=== PATIENT | female | born 1985 | race Caucasian/White ===

== ENCOUNTER 2017-09-26 12:45 | Emergency (ER) | payer OTHER ==
[~2017-09-26] VITALS: Ht 157.5 cm; Wt 82.3 kg
[~2017-09-26 12:45] MED LIST: BCPILLS PO
[2017-09-26 12:50] VITALS: TEMP 36.9; Ht 157.5 cm; Wt 82.3 kg
[2017-09-26] MEDS ORDERED: POTA-639 PO (13:08)
[2017-09-26] MEDS ORDERED: HYDR25TA4 PO (13:08)
--- NOTE | 2017-09-26 14:08 | EMERGENCY ROOM VISIT NOTE ---
History First contact with patient: 13:14 Chief Complaint: FALL Stated Complaint: FALL, RIGHT ARM PAIN AND SWELLING History of Present Illness The patient is a 32 year old female who presents to the Emergency Room with complaints of right arm pain after she had a mechanical fall earlier today. The patient slipped on wooden steps when it was raining. She fell landing on her right lower back. She thinks that she tried to catch herself and hit her arm on the way down. The pain in her arm is from the mid humerus down to the wrist. She has pain with any movement of the wrist or elbow. She denies any numbness or tingling into her hand. She is right-hand dominant. She has not taken anything for pain. She denies any other significant injuries. Review of Systems 6 system review negative. Please see pertinent positives in the history of present illness section. Past Medical/Surgical History Hypertension Social History Smoking Status: Never Smoker Current/Historical Medications Scheduled Hydrochlorothiazide (Hctz), 25 MG PO QD Potassium Ext Rel (Klor-Con), 20 MEQ PO DAILY Physical Exam Vital Signs Date Time Temp Pulse Resp B/P (MAP) Pulse Ox O2 Delivery O2 Flow Rate FiO2 09/26/17 12:50 36.9 110 18 162/107 98 Room Air Physical Exam VITALS: Vitals are noted on the nurse's note and reviewed by myself. Vital signs stable. GENERAL: 32-year-old female, in no acute distress, nondiaphoretic, well- developed well-nourished. SKIN: Minor skin abrasion noted over the right lower back. HEAD: Normocephalic atraumatic. NECK: Supple without nuchal rigidity. No JVD. HEART: Regular rate and rhythm without murmurs gallops or rubs. LUNGS: Clear to auscultation bilaterally without wheezes, rales or rhonchi. No accessory muscle use. Minor abrasion noted over the right upper back. No significant tenderness to palpation over the thorax. MUSCULOSKELETAL: RUE: Tenderness to palpation from the mid right humerus distally over the wrist. There is mild diffuse nonpitting edema noted in the area also. Slight difficulty with flexion and extension of the elbow. No tenderness over the right clavicle or anterior shoulder. Flexion and extension of the shoulder intact. Pain with flexion and extension of the right wrist. Radial pulse +2. There is some snuffbox tenderness noted. The patient is able to make an okay sign. Capillary refill in the fingers is less than 2 seconds. NEURO: Patient was alert and oriented to person place and time. Normal sensation to touch. No focal neurological deficits. Medical Decision & Procedures ER Provider Diagnostic Interpretation: Humerus, elbow, forearm and wrist x-rays IMPRESSION: Ill-defined linear lucency about the scaphoid waist seen only on the PA view of the wrist with the dedicated navicular view appearing normal is equivocal for acute nondisplaced fracture. Correlation with point tenderness and follow-up radiographs recommended. The above report was generated using voice recognition software. It may contain grammatical, syntax or spelling errors. Electronically signed by: Shawn Melendrez M.D. 09/26/2017 2:36 PM Dictated Date/Time: 09/26/2017 2:33 PM IMPRESSION: No fractures identified. No destructive lesions are visualized. Electronically signed by: Umer Pratt M.D. 09/26/2017 2:33 PM Dictated Date/Time: 09/26/2017 2:32 PM The status of this report is Signed. Draft = Not yet reviewed or approved by Radiologist. Signed = Reviewed and approved by Radiologist. IMPRESSION: No acute fracture or joint effusion of the right elbow. Electronically signed by: Ari Tate M.D. 09/26/2017 2:32 PM Dictated Date/Time: 09/26/2017 2:30 PM The status of this report is Signed. Draft = Not yet reviewed or approved by Radiologist. Signed = Reviewed and approved by Radiologist. IMPRESSION: No acute fracture of the right humerus. Electronically signed by: Ari Tate M.D. 09/26/2017 2:39 PM Dictated Date/Time: 09/26/2017 2:32 PM The status of this report is Signed. Draft = Not yet reviewed or approved by Radiologist. Signed = Reviewed and approved by Radiologist. ED Course The patient was seen and examined She declined pain medication Imaging was performed and reviewed The patient was reassessed and resting comfortably. We discussed the results of her imaging. She voiced understanding, was comfortable being discharged home. The patient was put in an Ortho-Glass thumb spica. She was also given a sling. Neurovascular status was rechecked and intact. Discharge instructions were reviewed, and she was discharged in good condition Medical Decision Differential diagnosis: Contusion, fracture, sprain, compartment syndrome among others were entertained This patient is a 32-year-old female that presents to the emergency department with diffuse pain in the right upper extremity after a fall. Imaging showed a questionable navicular fracture. She does have tenderness in the area. The patient will be put in an Ortho-Glass splint and need orthopedic follow-up. She was in agreement. She will return to the ED with any new or concerning symptoms. This chart was completed in part utilizing [employer] Speech Voice Recognition software. Attempts were made to minimize the grammatical errors, random word insertions, pronoun errors and incomplete sentences. Any formal questions or concerns about the content, text or information contained within the body of this dictation should be directly addressed to the provider for clarification. Medication Reconcilliation Current Medication List: was personally reviewed by me Blood Pressure Screening Patient's blood pressure: Elevated blood pressure Blood pressure disposition: Elevated BP felt to be situational Impression Primary Impression: Fall Departure Information Dispostion Home / Self-Care Condition GOOD Referrals Dar Justin M.D. (PCP) Abhi Rodriguez D.O. Patient Instructions [facility] Additional Instructions You had been seen in the emergency department for right arm pain resulting from a fall. There is a questionable fracture in your wrist. Please keep the splint in place. Do not get it wet. Rest the arm in a sling. Please call the orthopedic doctor first thing tomorrow morning for a follow-up appointment Please apply ice for 20 minute intervals over the next 48 hours. Take ibuprofen 600 mg every 6 hours as needed for pain. Do not exceed 2400 mg in a 24-hour period Please do not hesitate to return to the emergency department with any new, worsening or concerning symptoms; especially, severe pain, numbness or inability to move the fingers It was a pleasure participating in your care today
--- NOTE | 2017-09-26 14:33 | DIAGNOSTIC IMAGING REPORT ---
R ELBOW MIN 3 VIEWS ROUTINE CLINICAL HISTORY: Right elbow pain following fall. COMPARISON: None FINDINGS: Alignment of the right elbow is anatomic. There is no acute fracture or joint effusion. No osseous lesion is identified. IMPRESSION: No acute fracture or joint effusion of the right elbow. Electronically signed by: Ari Tate M.D. 09/26/2017 2:32 PM Dictated Date/Time: 09/26/2017 2:30 PM
--- NOTE | 2017-09-26 14:34 | DIAGNOSTIC IMAGING REPORT ---
R FOREARM 2 VIEWS ROUTINE CLINICAL HISTORY: Right forearm pain COMPARISON: None. DISCUSSION: No fractures are visualized. There are no erosive or destructive changes. IMPRESSION: No fractures identified. No destructive lesions are visualized. Electronically signed by: Umer Pratt M.D. 09/26/2017 2:33 PM Dictated Date/Time: 09/26/2017 2:32 PM
--- NOTE | 2017-09-26 14:38 | DIAGNOSTIC IMAGING REPORT ---
R WRIST W/NAVICULAR MIN 3 VIEWS HISTORY: 32 years-old Female snuff box tenderness acute pain and tenderness of the right wrist status post fall COMPARISON: None available TECHNIQUE: 5 views of the right wrist FINDINGS: Ill-defined linear lucency about the scaphoid waist is seen only on the PA view. The dedicated. Navicular view appears normal. The remaining bony structures appear unremarkable. No acute displaced fracture or dislocation. No significant soft tissue swelling or degenerative changes. IMPRESSION: Ill-defined linear lucency about the scaphoid waist seen only on the PA view of the wrist with the dedicated navicular view appearing normal is equivocal for acute nondisplaced fracture. Correlation with point tenderness and follow-up radiographs recommended. The above report was generated using voice recognition software. It may contain grammatical, syntax or spelling errors. Electronically signed by: Shawn Melendrez M.D. 09/26/2017 2:36 PM Dictated Date/Time: 09/26/2017 2:33 PM
--- NOTE | 2017-09-26 14:40 | DIAGNOSTIC IMAGING REPORT ---
R HUMERUS MIN 2 VIEWS ROUTINE CLINICAL HISTORY: Right humerus pain following fall. COMPARISON: None FINDINGS: No acute fracture of the right humerus is identified. Alignment of the right shoulder and elbow appears anatomic. IMPRESSION: No acute fracture of the right humerus. Electronically signed by: Ari Tate M.D. 09/26/2017 2:39 PM Dictated Date/Time: 09/26/2017 2:32 PM
[2017-09-26 15:32] VITALS: BP 136/95; PULSE 101; O2SAT 96
== END 2017-09-26 15:54 | disposition home or self-care (01) ==
LOC: C.EDB 12:47 → C.EDD 15:54
DX: M79.601 Pain in right arm (principal); S30.810A Abrasion of lower back and pelvis, initial encounter; W10.9XXA Fall (on) (from) unspecified stairs and steps, initial encounter; I10 Essential (primary) hypertension; Z79.899 Other long term (current) drug therapy

== ENCOUNTER 2021-03-23 13:56 | Inpatient (IN) ==
[2021-03-23] MEDS ORDERED: ONDANSETRON 4 MG OD TAB PO PRN (14:27)
[2021-03-23] MEDS ORDERED: LABETALOL HCL 100 MG TAB PO STA (14:27)
[2021-03-23 14:56] LABS: Basophils # (auto) 0.01 K/uL (0-0.2); Basophils % (auto) 0.1 %; Eosinophils % (auto) 0.8 %; Hematocrit (blood only) 38.2 % (37-47); Hemoglobin 12.7 g/dL (12.0-16.0); Immature Granulocytes # (auto) 0.09 K/uL (0.00-0.02); Immature Granulocytes % (auto) 0.7 %; Lymphocytes # (auto) 1.69 K/uL (1.2-3.4); Mean Corpuscular Hemoglobin 28.7 pg (25-34); Mean Corpuscular Hgb Conc 33.2 g/dL (32-36); Mean Corpuscular Volume 86.4 fL (80-100); Mean Platelet Volume 10.9 fL (7.4-10.4); Monocytes # (auto) 0.96 K/uL (0.11-0.59); Neutrophils # (auto) 9.19 K/uL (1.4-6.5); Neutrophils % (auto) 76.4 %; Platelet Count 230 K/uL (130-400); RDW Coefficient of Variation 13.1 % (11.5-14.5); RDW Standard Deviation 41.2 fL (36.4-46.3); Red Blood Count 4.42 M/uL (4.2-5.4); White Blood Count 12.04 K/uL (4.8-10.8)
[2021-03-23 15:10] LABS: Appearance Urine Clear (Clear); Bacteria Urine Automated 1+ (Negative); Bilirubin Urine Negative (Negative); Blood Urine Negative (Negative); Color Urine Orange; Epithelial Cell Urine Auto >30 /lpf (0-5); Glucose Urine UA Negative (Negative); Ketones Urine Negative (Negative); Leukocyte Esterase Urine 2+ (Negative); Nitrite Urine Negative (Negative); Protein Urine Negative (Negative); RBC Urine Automated 0-4 /hpf (0-4); Specific Gravity Urine 1.005 (1.000-1.030); Urobilinogen Urine Negative (Negative)
[2021-03-23 15:24] LABS: Albumin Globulin Ratio 1.1 (0.9-2); Albumin Level 3.2 gm/dl (3.4-5.0); BUN Creatinine Ratio 8.9 (10-20); Bilirubin,Total 0.4 mg/dl (0.2-1.0); Calcium 8.6 mg/dl (8.5-10.1); Creatinine Clr Calc Pharmacy 104.1 ml/min; Est GFR (African American) 112.4 ml/min; Potassium 3.8 mmol/L (3.5-5.1); Total Protein 6.2 gm/dl (6.0-8.3)
[2021-03-23 15:44] LABS: Creatinine Urine Random 42.4 mg/dl; Protein Creatinine Ratio Urine 0.2 (0-0.2); Total Protein Urine Random 6.6 mg/dl (0-11.9)
[2021-03-23] MEDS ORDERED: OXYTOCIN 30 UNITS/500 ML BAG IV PRN (16:18)
--- NOTE | 2021-03-23 16:29 | History & Physical Report ---
Date of Service March 23, 2021 Assessment & Plan (1) Chronic hypertension during , antepartum: (2) Elevated blood pressure complicating , antepartum: Plan: 36-year-old at 37 weeks and 5 days of gestation with history of chronic hypertension, recent increase in medication dose and now with blood elevated blood pressures and severe ranges, Patient is otherwise asymptomatic, heart rate reassuring, GBS negative, Cervix unfavorable, Discussed the findings above and recommended induction of labor for history of chronic hypertension with elevated blood pressures in severe range, patient understands all and agrees with plan. Discussed options of cervical ripening with vaginal insert with Cervidil or oral Cytotec. Patient does not like vaginal exams and she prefers oral Cytotec. Plan to admit, monitor, control blood pressures and start induction of labor, all questions were answered. History of Present Illness Chief Complaint: Sent from office for high blood pressures. Primary Care Provider: Dar Justin MD Patient is a 36-year-old at 37 weeks and 5 days of gestation who was sent from office with elevated blood pressures today at 162/86 and 160/88. She has a history of chronic hypertension and she has been on labetalol 100 mg twice daily which was increased 200 mg 3 times daily last week. She denies any symptoms, she denies headaches, change in her vision, nausea or vomiting, epigastric or right upper pain, chest pain nor shortness of breath. She denies contractions, leakage of fluid, vaginal bleeding. She reports good movements. She has been here for over 12 hours and she has multiple readings of elevated blood pressures and severe ranges. She took p.o. labetalol 100 mg right after she came to here but still with elevated blood pressures. She was originally scheduled for induction of labor on the at 38 weeks. With uncontrolled trolled blood pressures despite increase in medication dose, recommended delivery, induction of labor. Patient understands all and agrees with the plan. was also complicated by obesity, advanced maternal age, reflux disease, allergic rhinitis. Allergies Allergy/AdvReac Type Severity Reaction Status Date / Time Sulfa (Sulfonamide Allergy Unknown HIVES Verified 03/23/21 14:33 Antibiotics) Penicillins AdvReac Unknown rash/hives Verified 03/23/21 14:33 Home Medications Medication Instructions Recorded Confirmed Type aspirin 81 mg tablet 81 mg PO DAILY 02/14/21 03/23/21 History loratadine 10 mg tablet 10 mg PO DAILY 02/14/21 03/23/21 History prenat.vits,asif,ltl-hhpu-ghglr 1 tab PO DAILY 02/14/21 03/23/21 History labetalol 100 mg tablet 100 mg PO TID #90 tab 02/26/21 03/23/21 Rx Patient History Medical History High blood pressure chronic HTN on meds prior to Surgical History History of cholecystectomy Family History Other Prostate cancer Social History Smoking Status: Never smoker Hx Alcohol Use: No Hx Substance Use: No Preferred Language: Malaysian Communication Ability: Effective Pleating Supervisor Required: No Beliefs That Will Affect Care: None marital status: Current Living Situation: Spouse Other Information That Helps Us Care for You: No Feels Safe at Home: Yes Safety Concerns: Feels Safe At This Time 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 Review of Systems as per Subjective / HPI Physical Exam Constitutional: well developed and well nourished She is asymptomatic and comfortable Cardiovascular: Rate/Rhythm: + tachycardic Genitourinary: normal external appearance Manual OB Exam: + cervical dilation 1 cm, + cervical effacement 50% and + station high (Posterior) OB Exam Monitor Tracing: + external uterine monitor used and + category I Bedside ultrasound revealed presentation Vertex, SHANNEN is 9.3 cm Results & Data ([facility]) Vital Signs (Past 12 Hours) Vital Signs Temp Pulse Resp BP 03/23/21 16:11 117 H 170/101 H 03/23/21 16:03 112 H 172/105 H 03/23/21 15:52 112 H 154/98 H 03/23/21 15:41 106 H 158/89 H 03/23/21 15:32 112 H 140/87 03/23/21 15:22 115 H 157/97 H 03/23/21 15:12 117 H 146/95 H 03/23/21 15:02 120 H 166/91 H 03/23/21 14:51 121 H 139/98 03/23/21 14:42 120 H 144/99 H 03/23/21 14:31 37.5 C 118 H 20 158/100 H 03/23/21 14:23 123 H 165/111 H 03/23/21 14:21 130 H 158/108 H 03/23/21 14:11 130 H 184/109 H Laboratory Results Lab Results 03/23/21 03/23/21 03/23/21 Range/Units 14:25 14:25 14:41 WBC (4.8-10.8) K/uL RBC (4.2-5.4) M/uL Hgb (12.0-16.0) g/dL Hct (37-47) % MCV (80-100) fL MCH (25-34) pg MCHC (32-36) g/dL RDW Std Deviation (36.4-46.3) fL RDW Coeff of Na (11.5-14.5) % Plt Count (130-400) K/uL MPV (7.4-10.4) fL Immature Gran % (Auto) % Neut % (Auto) % Lymph % (Auto) % [place] % (Auto) % Eos % (Auto) % Baso % (Auto) % Neut # (Auto) (1.4-6.5) K/uL Lymph # (Auto) (1.2-3.4) K/uL [place] # (Auto) (0.11-0.59) K/uL Eos # (Auto) (0-0.5) K/uL Baso # (Auto) (0-0.2) K/uL Immature Gran # (Auto) (0.00-0.02) K/uL Sodium 133 L (136-145) mmol/L Potassium 3.8 (3.5-5.1) mmol/L Chloride 105 (98-107) mmol/L Carbon Dioxide 21 (21-32) mmol/L Anion Gap 7 (3-11) BUN 7 (6-23) mg/dl Creatinine 0.79 (0.6-1.2) mg/dl Est Cr Clr Drug Dosing 104.1 ml/min Est GFR ( Amer) 112.4 ml/min Est GFR (Non-Af Amer) 97.0 ml/min BUN/Creatinine Ratio 8.9 L (10-20) Glucose 113 H (70-99(Fasting)) mg/dl Calcium 8.6 (8.5-10.1) mg/dl Total Bilirubin 0.4 (0.2-1.0) mg/dl AST 11 L (13-39) U/L ALT 10 (7-52) U/L Alkaline Phosphatase 103 (34-104) U/L Total Protein 6.2 (6.0-8.3) gm/dl Albumin 3.2 L (3.4-5.0) gm/dl Globulin 3.0 (2.5-4.0) gm/dl Albumin/Globulin Ratio 1.1 (0.9-2) Urine Color [place] Urine Appearance Clear (Clear) Urine pH 6.0 (4.5-7.5) Ur Specific [place] 1.005 (1.000-1.030) Urine Protein Negative (Negative) Urine Glucose (UA) Negative (Negative) Urine Ketones Negative (Negative) Urine Blood Negative (Negative) Urine Nitrite Negative (Negative) Urine Bilirubin Negative (Negative) Urine Urobilinogen Negative (Negative) Ur Leukocyte Esterase 2+ H (Negative) Urine WBC (Auto) 10-30 H (0-5) /hpf Urine RBC (Auto) 0-4 (0-4) /hpf U Hyaline Cast (Auto) 1-5 (0-5) /lpf U Epithel Cells (Auto) >30 H (0-5) /lpf Urine Bacteria (Auto) 1+ H (Negative) Ur Random Creatinine 42.4 mg/dl U Random Total Protein 6.6 (0-11.9) mg/dl Protein/Creatinin Ratio 0.2 (0-0.2) 03/23/21 Range/Units 14:41 WBC 12.04 H (4.8-10.8) K/uL RBC 4.42 (4.2-5.4) M/uL Hgb 12.7 (12.0-16.0) g/dL Hct 38.2 (37-47) % MCV 86.4 (80-100) fL MCH 28.7 (25-34) pg MCHC 33.2 (32-36) g/dL RDW Std Deviation 41.2 (36.4-46.3) fL RDW Coeff of An 13.1 (11.5-14.5) % Plt Count 230 (130-400) K/uL MPV 10.9 H (7.4-10.4) fL Immature Gran % (Auto) 0.7 % Neut % (Auto) 76.4 % Lymph % (Auto) 14.0 % [place] % (Auto) 8.0 % Eos % (Auto) 0.8 % Baso % (Auto) 0.1 % Neut # (Auto) 9.19 H (1.4-6.5) K/uL Lymph # (Auto) 1.69 (1.2-3.4) K/uL [place] # (Auto) 0.96 H (0.11-0.59) K/uL Eos # (Auto) 0.10 (0-0.5) K/uL Baso # (Auto) 0.01 (0-0.2) K/uL Immature Gran # (Auto) 0.09 H (0.00-0.02) K/uL Sodium (136-145) mmol/L Potassium (3.5-5.1) mmol/L Chloride (98-107) mmol/L Carbon Dioxide (21-32) mmol/L Anion Gap (3-11) BUN (6-23) mg/dl Creatinine (0.6-1.2) mg/dl Est Cr Clr Drug Dosing ml/min Est GFR ( Amer) ml/min Est GFR (Non-Af Amer) ml/min BUN/Creatinine Ratio (10-20) Glucose (70-99(Fasting)) mg/dl Calcium (8.5-10.1) mg/dl Total Bilirubin (0.2-1.0) mg/dl AST (13-39) U/L ALT (7-52) U/L Alkaline Phosphatase (34-104) U/L Total Protein (6.0-8.3) gm/dl Albumin (3.4-5.0) gm/dl Globulin (2.5-4.0) gm/dl Albumin/Globulin Ratio (0.9-2) Urine Color Urine Appearance (Clear) Urine pH (4.5-7.5) Ur Specific [place] (1.000-1.030) Urine Protein (Negative) Urine Glucose (UA) (Negative) Urine Ketones (Negative) Urine Blood (Negative) Urine Nitrite (Negative) Urine Bilirubin (Negative) Urine Urobilinogen (Negative) Ur Leukocyte Esterase (Negative) Urine WBC (Auto) (0-5) /hpf Urine RBC (Auto) (0-4) /hpf U Hyaline Cast (Auto) (0-5) /lpf U Epithel Cells (Auto) (0-5) /lpf Urine Bacteria (Auto) (Negative) Ur Random Creatinine mg/dl U Random Total Protein (0-11.9) mg/dl Protein/Creatinin Ratio (0-0.2)
[2021-03-23] MEDS: LABETALOL HCL 100 MG TAB PO SCH ×2 (17:47→21:08)
[2021-03-23] MEDS: miSOPROStoL 50 MCG TAB PO SCH ×2 (17:53→23:51)
[2021-03-23] MEDS: LACTATED RINGER'S 1,000 ML IV PRN (23:52)
[2021-03-24] MEDS ORDERED: BUTORPHANOL TARTRATE 1 MG/ML VIAL IV PRN (00:24)
[2021-03-24] MEDS: miSOPROStoL 50 MCG TAB PO SCH ×3 (02:50→22:39)
[2021-03-24] MEDS ORDERED: LABETALOL HCL 100 MG TAB PO ONE (04:31)
[2021-03-24] MEDS: LABETALOL HCL 100 MG TAB PO SCH ×3 (08:33→21:21)
[2021-03-24] MEDS ORDERED: DINOPROSTONE 10 MG INSERT PV ONE (08:39)
--- NOTE | 2021-03-24 08:43 | Labor Progress Brief Note ---
Date of Service March 24, 2021 Assessment & Plan Admission and Anticipated Discharge Date Admission Date: March 23, 2021 Physical Exam Genitourinary: Manual OB Exam: + cervical dilation fingertip, + cervical effacement 50% and + station high OB Exam Monitor Tracing: + external FHT monitor used, + external uterine monitor used, + category I and + normal FHT variability Results & Data ([facility]) Vital Signs (Past 12 Hours) Vital Signs Temp Pulse Resp BP 03/24/21 08:26 122 H 143/91 H 03/24/21 07:23 37.0 C 100 H 20 143/98 H 03/24/21 04:23 36.9 C 107 H 146/90 H 03/24/21 04:22 112 H 155/100 H 03/23/21 23:51 36.9 C 111 H 18 135/84 03/23/21 21:05 114 H 160/99 H
[2021-03-24] MEDS ORDERED: Nursing to Pharmacy Communication SCH ×2 (09:00→21:45)
--- NOTE | 2021-03-24 09:10 | Labor Progress Brief Note ---
Date of Service March 24, 2021 Assessment & Plan Admission and Anticipated Discharge Date Admission Date: March 23, 2021 Physical Exam Genitourinary: OB Exam Monitor Tracing: + external FHT monitor used, + external uterine monitor used, + category I and + normal FHT variability Cervidil placed vaginally Results & Data ([facility]) Vital Signs (Past 12 Hours) Vital Signs Temp Pulse Resp BP 03/24/21 08:26 122 H 143/91 H 03/24/21 07:23 37.0 C 100 H 20 143/98 H 03/24/21 04:23 36.9 C 107 H 146/90 H 03/24/21 04:22 112 H 155/100 H 03/23/21 23:51 36.9 C 111 H 18 135/84
[2021-03-24 17:59] LABS: Influenza A virus by PCR Negative (Neg); Influenza B virus by PCR Negative (Neg); RSV by PCR Negative (Neg); SARS CoV2 RNA(COVID-19) InHosp NEGATIVE (Negative)
[2021-03-25] MEDS: miSOPROStoL 50 MCG TAB PO SCH (04:51)
[2021-03-25] MEDS: LABETALOL HCL 100 MG TAB PO SCH (09:29)
[2021-03-25] MEDS: LACTATED RINGER'S 1,000 ML IV PRN ×3 (09:35→21:47)
[2021-03-25] MEDS ORDERED: OXYTOCIN 30 UNITS/500 ML BAG IV PRN ×2 (09:45→22:55)
--- NOTE | 2021-03-25 11:11 | Obstetrical Progress Note ---
Date of Service March 25, 2021 Assessment & Plan (1) Chronic hypertension during , antepartum: Plan: Induction day #3 fro CHTN Met pt earlier today reviewed induction VE; Ft/post Unchanged CAT1 Ctx Minimal Agreeable to starting Pitocin Admission and Anticipated Discharge Date Admission Date: March 23, 2021 Results & Data ([facility]) Vital Signs (Past 12 Hours) Vital Signs Temp Pulse Resp BP 03/25/21 11:02 105 H 138/80 03/25/21 11:01 20 03/25/21 10:30 110 H 20 131/80 03/25/21 09:42 100 H 143/78 H 03/25/21 07:06 36.6 C 99 H 132/61 03/25/21 07:03 103 H 149/102 H 03/25/21 02:35 36.9 C 101 H 18 138/89
--- NOTE | 2021-03-25 12:07 | Obstetrical Progress Note ---
Date of Service March 25, 2021 Assessment & Plan (1) Chronic hypertension during , antepartum: Plan: Pt doing well SROM- clear fluid VE 3/75/-2 FHR ; CAT1 Ctx 2-4mins mild intensity Pit 6Mu Admission and Anticipated Discharge Date Admission Date: March 23, 2021 Results & Data ([facility]) Vital Signs (Past 12 Hours) Vital Signs Temp Pulse Resp BP 03/25/21 11:44 91 H 150/86 H 03/25/21 11:21 103 H 128/74 03/25/21 11:02 105 H 138/80 03/25/21 11:01 20 03/25/21 10:30 110 H 20 131/80 03/25/21 09:42 100 H 143/78 H 03/25/21 07:06 36.6 C 99 H 132/61 03/25/21 07:03 103 H 149/102 H 03/25/21 02:35 36.9 C 101 H 18 138/89
[2021-03-25] MEDS ORDERED: SODIUM CHLORIDE 0.9% INJ 10 ML VIAL ONE (13:28)
[2021-03-25] MEDS ORDERED: BUPIVACAINE 0.25% 30 ML VIAL ONE (13:28)
[2021-03-25] MEDS ORDERED: ePHEDrine sulfate 50 MG/ML AMP ONE (13:28)
[2021-03-25] MEDS ORDERED: fentaNYL citrate 100 MCG/2 ML VIAL ONE (13:28)
[2021-03-25] MEDS ORDERED: fentaNYL 2MCG/ML ROPIVACAINE 1.25MG/ML 100 ML BAG EPI ONE (13:28)
--- NOTE | 2021-03-25 14:03 | Anesthesiology Consultation ---
Date of Service March 25, 2021 Assessment & Plan (1) Encounter for pre-operative examination: Chart Review Chart Review: Patient NOT seen in Pre Admission Testing and Acceptable Risk for Labor Epidural Consults Requested none History Height/Weight Height: 5 ft 2 in Weight: 90.718 kg Allergies Allergy/AdvReac Type Severity Reaction Status Date / Time Sulfa (Sulfonamide Allergy Unknown HIVES Verified 03/23/21 14:33 Antibiotics) Penicillins AdvReac Unknown rash/hives Verified 03/23/21 14:33 Medications Home Medications Medication Instructions Recorded Confirmed Last Taken aspirin 81 mg tablet 81 mg PO DAILY 02/14/21 03/23/21 03/23/21 07:30 loratadine 10 mg tablet 10 mg PO DAILY 02/14/21 03/23/21 03/23/21 07:30 prenat.vits,asif,yhl-ibil-tiuie 1 tab PO DAILY 02/14/21 03/23/21 03/23/21 11:20 labetalol 100 mg tablet 100 mg PO TID #90 tab 02/26/21 03/23/21 03/23/21 07:30 Active Medications Generic Name Dose Route Start Last Admin Trade Name Freq PRN Reason Stop Dose Admin Lactated Ringer's 1,000 mls @ 125 mls/hr 03/23/21 14:27 03/24/21 00:29 Lr IV 04/22/21 14:26 0 mls/hr .Q8H PRN Infusion L&D Protocol Protocol Lactated Ringer's 1,000 mls @ 150 mls/hr 03/23/21 16:18 03/25/21 13:18 Lr IV 03/25/21 16:17 999 mls/hr .Q6H40M PRN Infusion L&D Protocol Protocol Oxytocin 30 units in 500 mls @ 0 mls/hr 03/25/21 09:45 03/25/21 11:55 Pitocin IV 03/27/21 09:44 0 units/hr .Q0M PRN 0 mls/hr Labor Induction/Augmentation Titration Protocol 0 UNITS/HR Labetalol HCl 100 mg 03/23/21 17:00 03/25/21 09:29 Labetalol Hcl 100 Mg Tab PO 04/22/21 16:59 100 mg TID CHRISTAL Administration Misoprostol 50 mcg 03/24/21 22:30 03/25/21 04:51 Misoprostol 50 Mcg Tab PO 04/23/21 22:29 50 mcg Q4H CHRISTAL Administration Past Medical History Medical History High blood pressure chronic HTN on meds prior to Past Family History Family History Other Prostate cancer Past Surgical History Surgical History History of cholecystectomy Social History Smoking Status: Never smoker Hx Alcohol Use: No Hx Substance Use: No Physical Exam Vital Signs Last Vital Signs Temp 36.6 C 03/25/21 07:06 Pulse 93 H 03/25/21 13:56 Resp 20 03/25/21 13:43 BP 127/85 03/25/21 13:43 Pulse Ox 98 03/25/21 13:56 Testing Laboratory Results 03/23/21 14:41 03/23/21 14:41 Urine Color [place] 03/23/21 14:25 Urine Appearance Clear (Clear) 03/23/21 14:25 Urine pH 6.0 (4.5-7.5) 03/23/21 14:25 Ur Specific [place] 1.005 (1.000-1.030) 03/23/21 14:25 Urine Protein Negative (Negative) 03/23/21 14:25 Urine Glucose (UA) Negative (Negative) 03/23/21 14:25 Urine Ketones Negative (Negative) 03/23/21 14:25 Urine Nitrite Negative (Negative) 03/23/21 14:25 Ur Leukocyte Esterase 2+ (Negative) H 03/23/21 14:25 Urine WBC (Auto) 10-30 /hpf (0-5) H 03/23/21 14:25 Urine RBC (Auto) 0-4 /hpf (0-4) 03/23/21 14:25 U Hyaline Cast (Auto) 1-5 /lpf (0-5) 03/23/21 14:25 U Epithel Cells (Auto) >30 /lpf (0-5) H 03/23/21 14:25 Urine Bacteria (Auto) 1+ (Negative) H 03/23/21 14:25 Blood Type A Positive 03/23/21 14:42 Antibody Screen NEGATIVE 03/23/21 14:42
[2021-03-25] MEDS ORDERED: NALOXONE HCL 0.4 MG/1 ML VIAL/CARP IV PRN (15:15)
[2021-03-25] MEDS ORDERED: NALOXONE HCL 1 MG in SODIUM CHLORIDE 0.9% 1000ML 1,000 ML IV PRN (15:15)
[2021-03-25] MEDS ORDERED: NALBUPHINE HCL INJ 10 MG/ML AMP IV PRN (15:15)
[2021-03-25] MEDS ORDERED: ePHEDrine sulfate 50 MG/ML AMP IV PRN (15:15)
[2021-03-25] MEDS ORDERED: ONDANSETRON INJ 2 MG/ML 2 ML VIAL IV PRN (15:15)
[2021-03-25] MEDS ORDERED: fentaNYL 2MCG/ML ROPIVACAINE 1.25MG/ML 100 ML BAG EPI PRN (15:15)
[2021-03-25] MEDS ORDERED: diphenhydrAMINE 50 MG/ML VIAL IV PRN (15:15)
--- NOTE | 2021-03-25 16:44 | Obstetrical Progress Note ---
Date of Service March 25, 2021 Assessment & Plan (1) Chronic hypertension during , antepartum: Plan: Pt doing well VE; fully dilated/0 Station cxt 2-3mins Pitocin ; OFF CAT 1 Pt will start pushing when she has urge Anticipate VD Admission and Anticipated Discharge Date Admission Date: March 23, 2021 Results & Data ([facility]) Vital Signs (Past 12 Hours) Vital Signs Temp Pulse Resp BP Pulse Ox 03/25/21 16:41 123 H 99 03/25/21 16:36 132 H 98 03/25/21 16:31 121 H 100 03/25/21 16:26 118 H 98 03/25/21 16:21 129 H 97 03/25/21 16:16 133 H 98 03/25/21 16:11 117 H 98 03/25/21 16:06 117 H 98 03/25/21 16:01 127 H 100 03/25/21 15:56 123 H 98 03/25/21 15:51 120 H 106/68 98 03/25/21 15:46 117 H 99 03/25/21 15:41 136 H 98 03/25/21 15:36 126 H 98 03/25/21 15:31 130 H 98 03/25/21 15:28 130 H 234/142 H 03/25/21 15:26 128 H 98 03/25/21 15:23 126 H 117/56 L 03/25/21 15:22 146 H 110/62 03/25/21 15:21 131 H 98 03/25/21 15:16 134 H 97 03/25/21 15:14 131 H 119/59 L 03/25/21 15:11 136 H 121/65 99 03/25/21 15:09 130 H 113/63 03/25/21 15:07 129 H 100/65 03/25/21 15:06 127 H 107/61 97 03/25/21 15:04 129 H 110/59 L 03/25/21 15:02 122 H 118/70 03/25/21 15:01 119 H 96 03/25/21 14:59 115 H 124/79 03/25/21 14:58 102 H 118/77 94 03/25/21 14:56 107 H 94 03/25/21 14:53 100 H 94 03/25/21 14:51 110 H 96 03/25/21 14:50 117 H 150/84 H 03/25/21 14:46 92 H 96 03/25/21 14:42 114 H 167/109 H 94 03/25/21 14:41 111 H 95 03/25/21 14:36 93 H 95 03/25/21 14:34 92 H 93 03/25/21 14:31 105 H 96 03/25/21 14:27 102 H 94 03/25/21 14:26 107 H 96 03/25/21 14:25 83 149/83 H 03/25/21 14:21 110 H 95 03/25/21 14:20 95 H 89 L 03/25/21 14:19 98 H 143/83 H 03/25/21 14:16 94 H 97 03/25/21 14:13 96 H 92 03/25/21 14:11 91 H 96 03/25/21 14:08 89 93 03/25/21 14:06 92 H 97 03/25/21 14:02 83 83 L 03/25/21 14:01 83 98 03/25/21 13:56 93 H 98 03/25/21 13:51 91 H 100 03/25/21 13:46 96 H 99 03/25/21 13:43 107 H 20 127/85 03/25/21 13:41 94 H 99 03/25/21 13:36 94 H 141/68 H 97 03/25/21 13:23 100 H 128/75 03/25/21 13:04 96 H 135/79 03/25/21 12:06 85 140/75 03/25/21 11:44 91 H 150/86 H 03/25/21 11:21 103 H 128/74 03/25/21 11:02 105 H 138/80 03/25/21 11:01 20 03/25/21 10:30 110 H 20 131/80 03/25/21 09:42 100 H 143/78 H 03/25/21 07:06 36.6 C 99 H 132/61 03/25/21 07:03 103 H 149/102 H
[2021-03-25] MEDS ORDERED: LIDOCAINE 1% LOCAL 20 ML VIAL ONE (22:32)
[2021-03-25] MEDS ORDERED: miSOPROStoL 200 MCG TAB ONE (22:46)
[2021-03-25] MEDS ORDERED: DIPHTHERIA/TETANUS/PERTUSSIS 0.5 ML SYR/VIAL IM ONE (22:55)
[2021-03-25] MEDS ORDERED: bisacodyL 10 MG SUPP PR PRN (22:55)
[2021-03-25] MEDS ORDERED: ACETAMINOPHEN 325 MG TAB PO PRN (22:55)
[2021-03-25] MEDS ORDERED: HYDROCORTISONE ACETATE 25 MG SUPP PR PRN (22:55)
[2021-03-25] MEDS ORDERED: BENZOCAINE 20% AER SPR 82.5 GM CAN EXT PRN (22:55)
[2021-03-25] MEDS ORDERED: miSOPROStoL 200 MCG TAB PR ONE (22:55)
[2021-03-25] MEDS ORDERED: SUPERCREAM 0.870% 15 GM JAR EXT PRN (22:55)
[2021-03-25 23:30] LABS: Base Excess Cord Arterial Bld -4.3 mEq/L (-9-1.8); CO2 Cord Arterial Blood 49 mmHg (39.1-73.5); HCO3 Cord Arterial Blood 23 mmol/L (19.7-28.5); PO2 Cord Arterial Blood 23 mmHg (4.1-31.7); pH Cord Arterial Blood 7.29 (7.1-7.38)
[2021-03-25 23:31] LABS: Oxygen Sat Cord Arterial Blood < 60.0 % (<60)
[2021-03-25 23:31] LABS: Base Excess Cord Venous Blood -4.6 mEq/L (-7.7-1.9); Cord Venous Blood HCO3 20 mmol/L (18.4-26.8); Cord Venous Blood PCO2 36 mmHg (30.4-57.2); Cord Venous Blood PO2 30 mmHg (14.1-43.3); Cord Venous Blood pH 7.36 (7.20-7.44); O2 Saturation Cord Venous Bld 70.3 % (<68)
--- NOTE | 2021-03-26 00:44 | Anesthesia Procedure Note ---
Date of Service March 26, 2021 Anesthesia Post Epidural Note Vital Signs Vital Signs: Temp Pulse Resp BP Pulse Ox 36.8 C 131 H 18 145/81 H 95 03/25/21 21:04 03/26/21 00:29 03/25/21 21:04 03/26/21 00:29 03/25/21 22:24 Pain Intensity Bilateral Abdomen: Pain Intensity: 0 Notes Mental Status: alert / awake / arousable and participated in evaluation Nausea / Vomiting: adequately controlled Pain: adequately controlled Airway Patency, RR, SpO2: stable & adequate BP & HR: stable & adequate Hydration State: stable & adequate Neuraxial Anesthesia: was administered and sensory block is resolving Anesthetic Complications: no major complications apparent and Pt Satisfied with anesthetic care Epidural: Removed without complications and With tip intact Notes: Epidural site clean, dry and intact. No signs of edema, erythema or bruising at insertion site. Pt instructed to request anesthesia if she has residual lower extremity numbness or if she develops lower extremity pain or weakness, back pain or headache.
[2021-03-26] MEDS: IBUPROFEN 600 MG TAB PO PRN ×3 (00:46→14:06)
[2021-03-26] MEDS: LABETALOL HCL 100 MG TAB PO SCH ×5 (00:47→21:08)
[2021-03-26 03:30] VITALS: O2SAT 98
[2021-03-26 06:55] LABS: Hematocrit (blood only) 32.3 % (37-47); Hemoglobin 10.7 g/dL (12.0-16.0); Mean Corpuscular Hemoglobin 28.5 pg (25-34); Mean Corpuscular Hgb Conc 33.1 g/dL (32-36); Mean Corpuscular Volume 86.1 fL (80-100); Mean Platelet Volume 10.4 fL (7.4-10.4); Platelet Count 201 K/uL (130-400); RDW Coefficient of Variation 13.2 % (11.5-14.5); RDW Standard Deviation 41.4 fL (36.4-46.3); Red Blood Count 3.75 M/uL (4.2-5.4); White Blood Count 19.94 K/uL (4.8-10.8)
--- NOTE | 2021-03-26 07:33 | Obstetrical Progress Note ---
Date of Service March 26, 2021 Assessment & Plan (1) Normal course: PPD#1 Doing well Continue routine PP care Anticipate d/c home tomorrow if doing well (2) Chronic hypertension: Continue labetalol 100mg TID Subjective Ambulation: ambulating normally Voiding: no voiding problems Passing Gas:: Yes Diet Tolerance:: regular diet Lochia:: Moderate Feeding Type:: breast feeding Current Pain Level(1-10): 2 Physical Exam Constitutional WD/WN, vitals as above Respiratory normal respiratory effort, lungs clear to auscultation Cardiovascular RRR, no murmur, no edema Gastrointestinal (Abdomen) normal bowel sounds, soft, nontender, no hepatosplenomegaly Results & Data ([facility]) Vital Signs (Past 12 Hours) Vital Signs Temp Pulse Resp BP BP Pulse Ox 03/26/21 02:32 36.5 C 18 131/80 98 03/26/21 01:44 126 H 148/89 H 03/26/21 01:29 129 H 132/70 03/26/21 01:14 133 H 143/78 H 03/26/21 00:59 126 H 147/81 H 03/26/21 00:44 133 H 147/86 H 03/26/21 00:29 131 H 145/81 H 03/26/21 00:14 133 H 142/85 H 03/25/21 23:59 136 H 134/77 03/25/21 23:44 133 H 151/76 H 03/25/21 23:29 134 H 156/81 H 03/25/21 23:14 130 H 154/87 H 03/25/21 23:01 134 H 148/83 H 03/25/21 22:44 129 H 156/94 H 03/25/21 22:30 144 H 135/90 03/25/21 22:24 142 H 95 03/25/21 22:19 120 H 89 L 03/25/21 22:14 154 H 177/102 H 95 03/25/21 22:09 125 H 97 03/25/21 22:07 127 H 86 L 03/25/21 22:04 141 H 95 03/25/21 22:00 142 H 133/67 85 L 03/25/21 21:59 130 H 90 03/25/21 21:54 124 H 93 03/25/21 21:53 131 H 82 L 03/25/21 21:49 123 H 95 03/25/21 21:47 121 H 89 L 03/25/21 21:44 121 H 152/85 H 94 03/25/21 21:41 171 H 81 L 03/25/21 21:39 131 H 95 03/25/21 21:35 123 H 88 L 03/25/21 21:34 133 H 95 03/25/21 21:30 139 H 87 L 03/25/21 21:29 137 H 150/78 H 91 03/25/21 21:25 131 H 84 L 03/25/21 21:24 131 H 90 03/25/21 21:19 141 H 95 03/25/21 21:14 139 H 144/76 H 95 03/25/21 21:09 155 H 94 03/25/21 21:04 36.8 C 133 H 18 94 03/25/21 21:00 144 H 153/78 H 03/25/21 20:59 142 H 95 03/25/21 20:57 134 H 89 L 03/25/21 20:54 131 H 95 03/25/21 20:49 135 H 95 03/25/21 20:46 125 H 86 L 03/25/21 20:45 127 H 140/76 03/25/21 20:44 130 H 94 03/25/21 20:38 137 H 96 03/25/21 20:36 124 H 94 03/25/21 20:33 139 H 95 03/25/21 20:30 139 H 174/76 H 03/25/21 20:28 125 H 95 03/25/21 20:24 112 H 88 L 03/25/21 20:23 136 H 96 03/25/21 20:19 129 H 90 03/25/21 20:18 134 H 96 03/25/21 20:17 126 H 131/73 03/25/21 20:13 121 H 94 03/25/21 20:08 142 H 89 L 03/25/21 20:03 132 H 97 03/25/21 19:59 134 H 138/72 03/25/21 19:58 140 H 93 03/25/21 19:53 135 H 96 03/25/21 19:52 124 H 94 03/25/21 19:47 138 H 95 03/25/21 19:44 141 H 145/78 H 03/25/21 19:42 130 H 95 03/25/21 19:40 149 H 91 03/25/21 19:37 159 H 95 03/25/21 19:32 136 H 96
[2021-03-26] MEDS: DOCUSATE SODIUM 100 MG CAP PO SCH ×2 (08:05→21:09)
[2021-03-26] MEDS: PRENATAL VITAMIN 1 TAB PO SCH (08:06)
[2021-03-26] MEDS: FERROUS SULFATE 325 MG TAB PO SCH (08:06)
--- NOTE | 2021-03-26 08:07 | Delivery Summary ---
DATE OF SERVICE: DELIVERY NOTE: The patient delivered a live male in occiput anterior presentation with a tight nuchal cord, which was cut at the perineum. The fetus also had a right hand compound presentation. was delivered and placed on mother's abdomen. Details of infant's weight and Apgars are in the pediatric record. Cord gas and cord blood was obtained. Placenta was spontaneously delivered. Inspection of the placenta shows a grossly normal looking placenta with 3-vessel cord. Inspection of the perineum showed a second-degree midline laceration, which was repaired with 2-0 Vicryl in layers. There was good hemostasis post repair. Rectal exam post-repair showed good sphincter tone. No sutures palpated in the rectum. All instruments are removed from the vagina and accounted for x2 including sponges, needles, and retractors. Estimated blood loss was 450 mL. Baby and mother are doing well in recovery. Job ID: [id number] [facility]
[2021-03-26] MEDS ORDERED: bisacodyL 5 MG TABEC PO SCH (20:00)
[2021-03-27] MEDS: IBUPROFEN 600 MG TAB PO PRN (00:06)
[2021-03-27 00:41] VITALS: TEMP 97.5
[2021-03-27 07:08] LABS: Hematocrit (blood only) 30.7 % (37-47); Hemoglobin 10.1 g/dL (12.0-16.0)
[2021-03-27] MEDS: DOCUSATE SODIUM 100 MG CAP PO SCH (08:12)
[2021-03-27] MEDS: FERROUS SULFATE 325 MG TAB PO SCH (08:12)
[2021-03-27] MEDS: PRENATAL VITAMIN 1 TAB PO SCH (08:12)
--- NOTE | 2021-03-27 08:50 | Obstetrical Progress Note ---
Date of Service March 27, 2021 Subjective Ambulation: ambulating normally Voiding: no voiding problems Passing Gas:: Yes Diet Tolerance:: regular diet Lochia:: Small Feeding Type:: breast feeding Current Pain Level(1-10): 0 doing well plans for d/c today Physical Exam Constitutional WD/WN, vitals as above abdomen soft and non-tender fundus firm no edema neg Shivani's for d/c Results & Data ([facility]) Vital Signs (Past 12 Hours) Vital Signs Temp Pulse Resp BP 03/26/21 23:05 36.4 C L 97 H 18 118/75 03/26/21 21:00 36.9 C 111 H 18 114/72 Laboratory Results 03/23/21 03/23/21 03/23/21 14:25 14:25 14:41 WBC RBC Hgb Hct MCV MCH MCHC RDW Std Deviation RDW Coeff of Na Plt Count MPV Immature Gran % (Auto) Neut % (Auto) Lymph % (Auto) [place] % (Auto) Eos % (Auto) Baso % (Auto) Neut # (Auto) Lymph # (Auto) [place]os # (Auto) Eos # (Auto) Baso # (Auto) Immature Gran # (Auto) Cord ABG pH Cord ABG pCO2 Cord ABG pO2 Cord ABG HCO3 Cord ABG Base Excess Cord ABG O2 Sat Cord VBG pH Cord VBG pCO2 Cord VBG pO2 Cord VBG HCO3 Cord VBG Base Excess Cord VBG O2 Sat Barometric Pressure Blood Gas Comments Sodium 133 L Potassium 3.8 Chloride 105 Carbon Dioxide 21 Anion Gap 7 BUN 7 Creatinine 0.79 Est Cr Clr Drug Dosing 104.1 Est GFR ( Amer) 112.4 Est GFR (Non-Af Amer) 97.0 BUN/Creatinine Ratio 8.9 L Glucose 113 H Calcium 8.6 Total Bilirubin 0.4 AST 11 L ALT 10 Alkaline Phosphatase 103 Total Protein 6.2 Albumin 3.2 L Globulin 3.0 Albumin/Globulin Ratio 1.1 Urine Color Wetzel Urine Appearance Clear Urine pH 6.0 Ur Specific [place] 1.005 Urine Protein Negative Urine Glucose (UA) Negative Urine Ketones Negative Urine Blood Negative Urine Nitrite Negative Urine Bilirubin Negative Urine Urobilinogen Negative Ur Leukocyte Esterase 2+ H Urine WBC (Auto) 10-30 H Urine RBC (Auto) 0-4 U Hyaline Cast (Auto) 1-5 U Epithel Cells (Auto) >30 H Urine Bacteria (Auto) 1+ H Ur Random Creatinine 42.4 U Random Total Protein 6.6 Protein/Creatinin Ratio 0.2 SARS-CoV-2 (PCR) Influenza Type A (PCR) Influenza Type B (PCR) RSV (RT-PCR) SARS-CoV-2, RNA, NAAT Blood Type Antibody Screen 03/23/21 03/23/21 03/23/21 14:41 14:42 16:56 WBC 12.04 H RBC 4.42 Hgb 12.7 Hct 38.2 MCV 86.4 MCH 28.7 MCHC 33.2 RDW Std Deviation 41.2 RDW Coeff of Na 13.1 Plt Count 230 MPV 10.9 H Immature Gran % (Auto) 0.7 Neut % (Auto) 76.4 Lymph % (Auto) 14.0 Coos % (Auto) 8.0 Eos % (Auto) 0.8 Baso % (Auto) 0.1 Neut # (Auto) 9.19 H Lymph # (Auto) 1.69 Coos # (Auto) 0.96 H Eos # (Auto) 0.10 Baso # (Auto) 0.01 Immature Gran # (Auto) 0.09 H Cord ABG pH Cord ABG pCO2 Cord ABG pO2 Cord ABG HCO3 Cord ABG Base Excess Cord ABG O2 Sat Cord VBG pH Cord VBG pCO2 Cord VBG pO2 Cord VBG HCO3 Cord VBG Base Excess Cord VBG O2 Sat Barometric Pressure Blood Gas Comments Sodium Potassium Chloride Carbon Dioxide Anion Gap BUN Creatinine Est Cr Clr Drug Dosing Est GFR ( Amer) Est GFR (Non-Af Amer) BUN/Creatinine Ratio Glucose Calcium Total Bilirubin AST ALT Alkaline Phosphatase Total Protein Albumin Globulin Albumin/Globulin Ratio Urine Color Urine Appearance Urine pH Ur Specific [place] Urine Protein Urine Glucose (UA) Urine Ketones Urine Blood Urine Nitrite Urine Bilirubin Urine Urobilinogen Ur Leukocyte Esterase Urine WBC (Auto) Urine RBC (Auto) U Hyaline Cast (Auto) U Epithel Cells (Auto) Urine Bacteria (Auto) Ur Random Creatinine U Random Total Protein Protein/Creatinin Ratio SARS-CoV-2 (PCR) Influenza Type A (PCR) Influenza Type B (PCR) RSV (RT-PCR) SARS-CoV-2, RNA, NAAT NEGATIVE Blood Type A Positive Antibody Screen NEGATIVE 03/24/21 03/25/21 03/25/21 17:00 22:23 23:23 WBC RBC Hgb Hct MCV MCH MCHC RDW Std Deviation RDW Coeff of Na Plt Count MPV Immature Gran % (Auto) Neut % (Auto) Lymph % (Auto) [place]os % (Auto) Eos % (Auto) Baso % (Auto) Neut # (Auto) Lymph # (Auto) [place]os # (Auto) Eos # (Auto) Baso # (Auto) Immature Gran # (Auto) Cord ABG pH 7.29 Cord ABG pCO2 49 Cord ABG pO2 23 Cord ABG HCO3 23 Cord ABG Base Excess -4.3 Cord ABG O2 Sat < 60.0 Cord VBG pH 7.36 Cord VBG pCO2 36 Cord VBG pO2 30 Cord VBG HCO3 20 Cord VBG Base Excess -4.6 Cord VBG O2 Sat 70.3 H Barometric Pressure 731.1 731.1 Blood Gas Comments BELLA BELLA Sodium Potassium Chloride Carbon Dioxide Anion Gap BUN Creatinine Est Cr Clr Drug Dosing Est GFR ( Amer) Est GFR (Non-Af Amer) BUN/Creatinine Ratio Glucose Calcium Total Bilirubin AST ALT Alkaline Phosphatase Total Protein Albumin Globulin Albumin/Globulin Ratio Urine Color Urine Appearance Urine pH Ur Specific [place] Urine Protein Urine Glucose (UA) Urine Ketones Urine Blood Urine Nitrite Urine Bilirubin Urine Urobilinogen Ur Leukocyte Esterase Urine WBC (Auto) Urine RBC (Auto) U Hyaline Cast (Auto) U Epithel Cells (Auto) Urine Bacteria (Auto) Ur Random Creatinine U Random Total Protein Protein/Creatinin Ratio SARS-CoV-2 (PCR) NEGATIVE Influenza Type A (PCR) Negative Influenza Type B (PCR) Negative RSV (RT-PCR) Negative SARS-CoV-2, RNA, NAAT Blood Type Antibody Screen 03/26/21 03/27/21 06:47 06:11 WBC 19.94 H RBC 3.75 L Hgb 10.7 L 10.1 L Hct 32.3 L 30.7 L MCV 86.1 MCH 28.5 MCHC 33.1 RDW Std Deviation 41.4 RDW Coeff of Na 13.2 Plt Count 201 MPV 10.4 Immature Gran % (Auto) Neut % (Auto) Lymph % (Auto) [place]os % (Auto) Eos % (Auto) Baso % (Auto) Neut # (Auto) Lymph # (Auto) [place] # (Auto) Eos # (Auto) Baso # (Auto) Immature Gran # (Auto) Cord ABG pH Cord ABG pCO2 Cord ABG pO2 Cord ABG HCO3 Cord ABG Base Excess Cord ABG O2 Sat Cord VBG pH Cord VBG pCO2 Cord VBG pO2 Cord VBG HCO3 Cord VBG Base Excess Cord VBG O2 Sat Barometric Pressure Blood Gas Comments Sodium Potassium Chloride Carbon Dioxide Anion Gap BUN Creatinine Est Cr Clr Drug Dosing Est GFR ( Amer) Est GFR (Non-Af Amer) BUN/Creatinine Ratio Glucose Calcium Total Bilirubin AST ALT Alkaline Phosphatase Total Protein Albumin Globulin Albumin/Globulin Ratio Urine Color Urine Appearance Urine pH Ur Specific [place] Urine Protein Urine Glucose (UA) Urine Ketones Urine Blood Urine Nitrite Urine Bilirubin Urine Urobilinogen Ur Leukocyte Esterase Urine WBC (Auto) Urine RBC (Auto) U Hyaline Cast (Auto) U Epithel Cells (Auto) Urine Bacteria (Auto) Ur Random Creatinine U Random Total Protein Protein/Creatinin Ratio SARS-CoV-2 (PCR) Influenza Type A (PCR) Influenza Type B (PCR) RSV (RT-PCR) SARS-CoV-2, RNA, NAAT Blood Type Antibody Screen
[2021-03-27] MEDS: LABETALOL HCL 100 MG TAB PO SCH (09:31)
[2021-03-27 10:24] VITALS: BP 133/83; PULSE 98
== END 2021-03-27 11:45 | disposition home or self-care (01) | DRG 807 ==
LOC: OPB 13:56 → 4S1 13:57 → 4S2 03-26 02:12
DX: O70.1 Second degree perineal laceration during delivery; O32.6XX0 Maternal care for compound presentation, not applicable or unspecified; Z37.0 Single live birth; E66.9 Obesity, unspecified; Z88.0 Allergy status to penicillin; Z88.2 Allergy status to sulfonamides; Z79.82 Long term (current) use of aspirin; Z3A.38 38 weeks gestation of pregnancy; O99.214 Obesity complicating childbirth; O10.92 Unspecified pre-existing hypertension complicating childbirth; O69.1XX0 Labor and delivery complicated by cord around neck, with compression, not applicable or unspecified